=== PATIENT | male | born 1985 | race African-American/Black ===

== ENCOUNTER 2022-06-10 20:07 | Emergency (ER) | payer BC, OTHER ==
[~2022-06-10] VITALS: Ht 182.9 cm; Wt 74.1 kg
[2022-06-10 20:43] VITALS: BP 155/84
[2022-06-10] MEDS ORDERED: METHOCARBAMOL 750MG TABLET PO SCH (23:15)
[2022-06-10] MEDS ORDERED: IBUPROFEN 400MG TABLET PO ONE (23:15)
[2022-06-10] MEDS ORDERED: LIDOCAINE 5% PATCH TOP SCH (23:15)
[2022-06-10] MEDS ORDERED: HYDROCODONE/ACETAMINOPHEN 5/325MG TABLET PO ONE (23:15)
[2022-06-11] MEDS ORDERED: TOPUD PO (00:27)
[2022-06-11] MEDS ORDERED: LIDO1ADH23 TP (00:27)
[2022-06-11] MEDS ORDERED: IBUP-2028 MT (00:27)
[2022-06-11] MEDS ORDERED: METH-653 MT (00:27)
== END 2022-06-11 00:57 | disposition home or self-care (01) ==
LOC: ER 20:07
DX: S13.4XXA Sprain of ligaments of cervical spine, initial encounter (principal); M25.562 Pain in left knee; M25.512 Pain in left shoulder; V43.52XA Car driver injured in collision with other type car in traffic accident, initial encounter; Y93.89 Activity, other specified; Y92.410 Unspecified street and highway as the place of occurrence of the external cause
CPT/HCPCS: 73030; 73562; 99284; Z7610